=== PATIENT | female | born 1950 | race Caucasian/White ===

== ENCOUNTER 2016-10-15 23:01 | Emergency (ER) | payer MEDICARE, OTHER ==
[2016-10-15 23:27] VITALS: RESP 18
[2016-10-16] MEDS ORDERED: DIPH,PERTUS(ACELL)TETVAC-LF 0.5 ML VIAL IM ONE (00:57)
[2016-10-16] MEDS ORDERED: TOPICAL SKIN ADHESIVE 1 EACH AMP TOPICAL ONE (01:54)
--- NOTE | 2016-10-16 01:56 | ED ---
Wound/Laceration HPI - General Chief Complaint: Wound/Laceration Stated Complaint: leg injury/lac Time Seen by Provider: 10/16/16 00:27 Source: patient, RN notes reviewed, old records reviewed Mode of arrival: ambulatory Limitations: no limitations - History of Present Illness Initial Comments: This is a 66 year old female with cc of laceration over distal left lower leg after cutting it on the edge of the bed frame. She does not know the status of her tetanus. She reports that she could not control the bleeding and noticed a flap in her skin. She reports she has no other injury related to this accident. She reports she is otherwise healthy. - Related Data Home Medications Medication Instructions Recorded Confirmed Unable To Assess [Unable to Assess] 11/18/15 11/18/15 Allergies Allergy/AdvReac Type Severity Reaction Status Date / Time No Known Allergies Allergy Verified 10/15/16 23:27 Review of Systems ROS Statement: Those systems with pertinent positive or pertinent negative responses have been documented in the HPI. ROS Other: All systems not noted in ROS Statement are negative. Past Medical History Past Medical History: Hypertension History of Any Multi-Drug Resistant Organisms: None Reported Additional Past Surgical History / Comment(s): D&C Past Psychological History: No Psychological Hx Reported Smoking Status: Current every day smoker Past Alcohol Use History: None Reported Past Drug Use History: None Reported General Exam - General Exam Comments Initial Comments: Well appearing 66 year old female. No acute distress. Limitations: no limitations General appearance: alert, in no apparent distress Head exam: Present: atraumatic, normocephalic, normal inspection Eye exam: Present: normal appearance, PERRL, EOMI. Absent: scleral icterus, conjunctival injection, periorbital swelling ENT exam: Present: normal exam, mucous membranes moist Neck exam: Present: normal inspection. Absent: tenderness, meningismus, lymphadenopathy Respiratory exam: Present: normal lung sounds bilaterally. Absent: respiratory distress, wheezes, rales, rhonchi, stridor Cardiovascular Exam: Present: regular rate, normal rhythm, normal heart sounds. Absent: systolic murmur, diastolic murmur, rubs, gallop, clicks GI/Abdominal exam: Present: soft, normal bowel sounds. Absent: distended, tenderness, guarding, rebound, rigid Extremities exam: Present: full ROM, normal capillary refill. Absent: normal inspection, tenderness, pedal edema, joint swelling, calf tenderness Right Knee exam: Present: normal inspection, full ROM Lower Leg exam: Present: full ROM, laceration (Flap laceration measuring 2cm on each side. laceration over distal lateral lower leg. ). Absent: normal inspection Ankle exam: Present: normal inspection, full ROM Foot/Toe exam: Present: normal inspection, full ROM Neurovascular tendon exam: Present: no vascular compromise Course Vital Signs 10/15/16 10/16/16 23:25 02:00 Temperature 96.0 F L 97.4 F L Pulse Rate 65 60 Respiratory 18 18 Rate Blood Pressure 180/79 169/72 O2 Sat by Pulse 97 96 Oximetry Procedures - Laceration Laceration #1 Site: lower extremity (right) Size (cm): 4 Description: flap Depth: simple, single layer Anesthetic Used: lidocaine 1% Anesthesia Technique: local infiltration Amount (mls): 5 Pre-repair: wound explored, irrigated extensively Type of Sutures: nylon Size of Sutures: 5-0 Number of Sutures: 4 (minor use of dermabond on distal tip. ) Technique: simple, interrupted Patient Tolerated Procedure: well, no complications Medical Decision Making - Medical Decision Making This is a 66 year old female with cc of laceration over distal left lower leg after cutting it on the edge of the bed frame. She does not know the status of her tetanus. She reports that she could not control the bleeding and noticed a flap in her skin. She reports she has no other injury related to this accident. She reports she is otherwise healthy. Patient has a 4 cm flap laceration. Thouroghly irrigated and closed with 4 sutures. Also used dermabond over the distal site as the skin is very thin. Patient updated on tetanus. Discussed monitor for infection and return parameters as to when to remove sutures. Patient agrees to treatment plan and will comply. Disposition Clinical Impression: Laceration of leg, right Disposition: HOME SELF-CARE Condition: Good Instructions: Care For Your Stitches (ED), Laceration (ED) Additional Instructions: Please return to the emergency room in 8-10 days to have sutures removed. Please leave wound covered for the first 24-48 hours and then leave open to air after that time. Please use clean soap and water to clean the suture area to prevent scabbing over the top of your sutures. Please watch for any signs of infection which may include but not limited to increased pain, swelling, redness , fever or chills. Please return to the emergency room if any signs of infection do occur. Please return to the emergency room for any other concerns or complications. Referrals: Ronaldo Garrett MD [Primary Care Provider] - 1-2 days Time of Disposition: 01:55
[2016-10-16 02:04] VITALS: BP 169/72; PULSE 60; TEMP 97.4
--- NOTE | 2016-10-18 07:42 | CDI ---
Dear Naye Pop PA-C: Please do addendum if there is any procedure done for laceration of leg with size and specific site whether lower or upper leg of the laceration. Thank you, Randa Forde, Marketing Performance Analyst. If you have any questions, please contact Social Work Associate at [phone]. GERALDD
== END 2016-10-16 02:15 | disposition home or self-care (01) ==
LOC: EC 23:01
DX: S81.811A Laceration without foreign body, right lower leg, initial encounter (principal); F17.200 Nicotine dependence, unspecified, uncomplicated; Z23 Encounter for immunization; W45.8XXA Other foreign body or object entering through skin, initial encounter
CPT/HCPCS: 12002; 90471; 90715; 99283

== ENCOUNTER → 2021-09-27 | Outpatient (CLI) | payer MEDICARE, OTHER ==
--- NOTE | 2021-09-27 13:31 | CT ---
EXAMINATION TYPE: CT iac wo con CT DLP: 150 mGycm, Automated exposure control for dose reduction was used. DATE OF EXAM: 09/27/2021 1:23 PM INDICATION: Patient age:Female; 71 years old; Reason for study: H91.90 HEARING LOSS H933.19 TINNITUS; COMPARISON: None. TECHNIQUE: Multiple thin axial images were obtained through the temporal bones and internal auditory canals. Additional coronal reformatted images were obtained. No IV contrast was utilized. FINDINGS: Right Temporal Bone: External Ear: The external auditory canal is unremarkable, The tympanic membrane is present and unrem arkable. Middle Ear: The ossicles demonstrate a normal appearance. Prussak's space is clear and the scutum i s intact. There is no evidence of osseous erosion and the tegmen tympani is intact. Inner Ear: Cochlea, vestibule and semi circular canals are unremarkable. No evidence of carotid nikki l dehiscence. Two and a half turns of the cochlea are identified. The vestibular aqueduct is not enl arged. Mastoid Air Cells: The mastoid air cells are clear. The tegmen mastoideum is intact. The aditus ad an trum is clear. Internal Auditory Canal: The internal auditory canal is unremarkable. Left Temporal Bone: External Ear: The external auditory canal is unremarkable, The tympanic membrane is present and unrem arkable. Middle Ear: The ossicles demonstrate a normal appearance. Prussak's space is clear and the scutum i s intact. There is no evidence of osseous erosion and the tegmen tympani is intact. Inner Ear: Cochlea, vestibule and semi circular canals are unremarkable. No evidence of carotid nikki l dehiscence. Two and a half turns of the cochlea are identified. The vestibular aqueduct is not enl arged. Mastoid Air Cells: The mastoid air cells are clear. The tegmen mastoideum is intact. The aditus ad an trum is clear. Internal Auditory Canal: The internal auditory canal is unremarkable. IMPRESSION: Normal internal auditory canal study.
== END | disposition home or self-care (01) ==
LOC: RADCTMAIN 12:24
PROVIDERS: ATTEND Otolaryngology
DX: H93.19 Tinnitus, unspecified ear (principal)
CPT/HCPCS: 70480